=== PATIENT | male | born 1960 | race Caucasian/White ===

== ENCOUNTER 2018-10-17 06:45 | Day surgery (SDC) | payer MEDICAID ==
[~2018-10-17] VITALS: Ht 180.3 cm; Wt 81.8 kg
[2018-10-17] VITALS (7 sets, daily range): BP systolic 112–131; BP diastolic 66–80
[2018-10-17] MEDS ORDERED: fentaNYL/PF 50MCG/1 ML 2ML syringe ONE (07:53)
[2018-10-17] MEDS ORDERED: MIDAZolam 5mg/5ml vial ONE (07:53)
[2018-10-17] MEDS ORDERED: ASPI-611 PO (08:03)
[2018-10-17] MEDS ORDERED: METHYFOLATE PO (08:04)
[2018-10-17] MEDS ORDERED: HYDR28CR14 TP (08:04)
[2018-10-17] MEDS ORDERED: HYDR12.5 PO (08:06)
[2018-10-17] MEDS ORDERED: BACL20TA PO (08:06)
[2018-10-17] MEDS ORDERED: DIPH50CA4 (08:06)
[2018-10-17] MEDS ORDERED: LISI-600 PO (08:07)
[2018-10-17] MEDS ORDERED: ARIP5TAB4 PO (08:08)
[2018-10-17] MEDS ORDERED: BUPR1PAT TOP (08:11)
[2018-10-17] MEDS ORDERED: CLOP75TA15 PO (08:13)
[2018-10-17] MEDS ORDERED: LEVO750T21 PO (08:14)
[2018-10-17] MEDS ORDERED: CARB1TAB23 PO (08:15)
[2018-10-17] MEDS ORDERED: GABA600T13 PO (08:17)
[2018-10-17] MEDS ORDERED: ATOR20TA PO (08:18)
[2018-10-17] MEDS ORDERED: BUPR-94 PO (08:18)
[2018-10-17] MEDS ORDERED: GUAI400T77 PO (08:25)
[2018-10-17] MEDS ORDERED: ALBU8.5H8 INH (08:26)
[2018-10-17] MEDS ORDERED: CARB15DR91 EACH EAR (08:27)
[2018-10-17] MEDS ORDERED: AMOX-422 PO (08:27)
[2018-10-17] MEDS ORDERED: DIVA500T9 PO (08:28)
[2018-10-17] MEDS ORDERED: RANI150C4 PO (08:29)
[2018-10-17] MEDS ORDERED: METF-436 PO ×2 (08:30→08:31)
[2018-10-17] MEDS ORDERED: OMEP20CA11 PO (08:32)
[2018-10-17] MEDS ORDERED: VENL150T3 PO (08:32)
== END 2018-10-17 10:15 | disposition home or self-care (01) ==
LOC: GI LAB 06:45
PROVIDERS: ATTEND Internal Medicine Gastroenterology
DX: Z12.11 Encounter for screening for malignant neoplasm of colon (principal); Z90.49 Acquired absence of other specified parts of digestive tract; E11.9 Type 2 diabetes mellitus without complications; F32.9 Major depressive disorder, single episode, unspecified; Z79.899 Other long term (current) drug therapy; I10 Essential (primary) hypertension; Z86.73 Personal history of transient ischemic attack (TIA), and cerebral infarction without residual deficits; Z98.890 Other specified postprocedural states; Z87.19 Personal history of other diseases of the digestive system
CPT/HCPCS: 45378; 99152; 99153; J2250; J3010; J7030; A4620; J7040